=== PATIENT | female | born 1955 | race Caucasian/White ===

== ENCOUNTER 2019-10-13 14:35 | Outpatient (CLI) | payer MEDICARE, OTHER, SELFPAY ==
--- NOTE | 2019-10-13 14:49 | MM_ITS ---
WS: [id number] BILATERAL SCREENING DIGITAL MAMMOGRAM WITH CAD HISTORY: SCREENING COMPARISON: 08/28/2018 Bilateral CC and MLO views submitted. Computer aided detection analyzed. Breast composition: There are scattered areas of fibroglandular density. No suspicious masses, microc alcifications or architectural distortion. Benign calcifications in each breast. MM/[place] [id number] IMPRESSION: BI-RADS: 2-Benign FOLLOW UP: 1 Year Follow-up
== END 2019-10-13 14:36 | disposition home or self-care (01) ==
PROVIDERS: PCP Nurse Practitioner; Visit Provider Nurse Practitioner
DX: Z12.31 Encounter for screening mammogram for malignant neoplasm of breast (principal)
CPT/HCPCS: 77067

== ENCOUNTER 2019-10-28 08:22 | Day surgery (SDC) | payer MEDICARE, OTHER, SELFPAY ==
[2019-10-27 12:14] VITALS: BMI 33.5
[2019-10-28 08:48] VITALS: BP 127/71; PULSE 86; RESP 18; TEMP 36.7; O2SAT 99
[2019-10-28] MEDS: sodium chloride 0.9% 1,000 ML 30 ML IV (08:56)
[2019-10-28 09:03] LABS: Glucose Point of Care 118 mg/dL (70-110)
--- NOTE | 2019-10-28 09:27 | ANES.PREANE2 ---
Pre-Anesthetic Assessment Pre-Anesthetic Assessment: Height/Weight: Height 1.52 m Weight 78.018 kg Temp Pulse Resp BP Pulse Ox 98.0 F 86 18 127/71 99 10/28/19 08:48 10/28/19 08:48 10/28/19 08:48 10/28/19 08:48 10/28/19 08:48 Proposed Procedure: Operation Date: 10/28/19 10:00 Proposed Procedures p Colonoscopy/10526 Z12.11(Not Applicable) - Jeffry Coker MD Last intake: Intake Last Liquid Date 10/27/19 Last Liquid Time 20:00 Last Solid Date 10/26/19 Last Solid Time 18:00 Social: Social History: No alcohol and No tobacco Exam: Pre-Anes Outpt Exam: alert, oriented x 3, clear to auscultation bilaterally and regular rate & rhythm Airway: Submandibular: WNL Cervical ROM: WNL MP: 2 Dentition: Other (teeth ok) History/ROS: No significant history except as noted Pulmonary: Pulmonary: None reported CV/HEM: CV/HEM: HTN : : None reported Hepatic: Hepatic: None reported GI: GI: GERD (controlled) Metabolic: Metabolic: DM and Hyperlipidemia Musc/skel: Musc/skel: None reported Neuropsych: Neuropsych: None reported Anesthetic Plan: ASA status: 2 Anesthesia: Anesthesia Evaluation and MAC Risk of > 500 ml blood loss (7ml/kg in children): No Meds/Allergies Current Medications: Current Medications Generic Name Dose Route Start Last Admin Trade Name Freq PRN Reason Stop Dose Admin Sodium Chloride 1,000 mls @ 30 ml s/hr 10/27/19 13:45 10/28/19 08:56 Sodium Chloride 0.9% IV 10/28/19 13:44 30 mls/hr .Q24H DAMON Administration PFSH Anesthesia PFSH: Medical History Diabetes Hyperlipidemia Hypothyroidism RBBB Surgical History S/P cholecystectomy Family History Other CAD (coronary artery disease) Cancer Diabetes Hypertension Social History Smoking and tobacco status: never smoked Alcohol intake: never Data Anesthesia Other Labs: Laboratory Results - last 48 hr 10/28/19 08:59 POC Glucose 118 Cardiac Studies: No Data to Display
--- NOTE | 2019-10-28 10:20 | P.HP_ITS ---
Same Day Surgery H&P Indication for Procedure/HPI DATE OF PROCEDURE: October 28, 2019 CHIEF COMPLAINT/INDICATIONFOR SURGICAL PROCEDURE: I am here for screening colonoscopy PREOP DIAGNOSIS: Screening colonoscopy PLANNED PROCEDRUE: Operation Date: 10/28/19 10:00 Proposed Procedures p Colonoscopy/07810 Z12.11(Not Applicable) - Jeffry Coker MD This is a pleasant 64 years old female patient presents as a referral for screening colonoscopy, patient never had one before and she denies any bleeding per rectum or nonintentional weight loss or history of colon cancer. She states that she does have hypothyroidism, diabetes and hyperlipidemia and right bundle branch block ROS All systems have been reviewed negative except as per the above or per problem list Medications/Allergies* Home Medications Medication Instructions Recorded Confirmed Type aspirin 81 mg tablet,delayed 81 mg PO DAILY 06/22/19 10/27/19 History release glyburide 2.5 mg-metformin 500 mg 2 tab PO BID tab 06/22/19 10/28/19 History tablet levothyroxine 100 mcg capsule 100 mcg PO DAILY 06/22/19 10/28/19 History lovastatin 10 mg tablet 10 mg PO BEDTIME 06/22/19 10/28/19 History metoprolol tartrate 25 mg tablet 25 mg PO BID 06/22/19 10/28/19 History omeprazole 20 mg capsule,delayed 20 mg PO DAILY 06/22/19 10/28/19 History release trazodone 50 mg tablet 50 mg PO DAILY 06/22/19 10/28/19 History Allergies/Adverse Reactions Allergy/AdvReac Type Severity Reaction Status Date / Time No Known Allergies Allergy Verified 10/28/19 10:21 Current Medications: Generic Name Dose Route Start Last Admin Trade Name Freq PRN Reason Stop Dose Admin Sodium Chloride 1,000 mls @ 30 mls/hr 10/27/19 13:45 10/28/19 08:56 Sodium Chloride 0.9% IV 10/28/19 13:44 30 mls/hr .Q24H DAMON Administration Pertinent History/Comorbid Conditions* Medical History (Updated 06/23/19 @ 06:13 by Elidia Elliott MD) Diabetes Hyperlipidemia Hypothyroidism RBBB Surgical History (Updated 06/22/19 @ 11:24 by Elidia Elliott MD) S/P cholecystectomy Family History (Updated 06/22/19 @ 11:11 by Corrina Rubio RN) Diabetes CAD (coronary artery disease) Cancer Hypertension Social History Smoking and tobacco status: never smoked Alcohol intake: never Pertinent Exam Findings alert, oriented x 3, clear to auscultation bilaterally, regular rate & rhythm and procedure specific exam findings (Abdominal examination nontender nondistended soft no signs of peritonitis) Recommendations Surgery/Procedure today (Screening colonoscopy and informed consent per chart) Coding Level of Care Code Acute Information Assistant for Saleem Linares
[2019-10-28 10:38] VITALS: BP 120/58; PULSE 82; RESP 16; TEMP 36.4; O2SAT 98
--- NOTE | 2019-10-28 10:45 | ANE.PACU2 ---
Inpatient post-anesthesia follow up: Airway intact: Yes Vital signs: Temperature 97.5 F Pulse Rate 82 Respiratory Rate 16 Blood Pressure 120/58 Pulse Oximetry 98 Oxygen Delivery Me thod Nasal Cannula Oxygen Flow Rate 3.0 Fraction of Inspir ed Oxygen Hydration adequate: Yes Nausea and vomiting: No Pain level: 1 Mental status: Baseline
[2019-10-28 10:49] VITALS: BP 125/69; PULSE 77; RESP 18; O2SAT 95
== END 2019-10-28 11:00 | disposition home or self-care (01) ==
PROVIDERS: PCP Nurse Practitioner; Visit Provider Surgery
PROC: 0DJD8ZZ Inspection of Lower Intestinal Tract, Via Natural or Artificial Opening Endoscopic (ICD-10-PCS; CPT 45378; principal; 2019-10-28 10:00)
DX: Z12.11 Encounter for screening for malignant neoplasm of colon (principal); K57.30 Diverticulosis of large intestine without perforation or abscess without bleeding; E03.9 Hypothyroidism, unspecified; E11.9 Type 2 diabetes mellitus without complications; E78.5 Hyperlipidemia, unspecified; Z79.82 Long term (current) use of aspirin; I45.10 Unspecified right bundle-branch block; Z82.49 Family history of ischemic heart disease and other diseases of the circulatory system; Z83.3 Family history of diabetes mellitus; I10 Essential (primary) hypertension
CPT/HCPCS: 12345; 36416; 82962; G0121; J2704; J7030

== ENCOUNTER 2020-06-16 08:38 | Outpatient (CLI) | payer MEDICARE, OTHER, SELFPAY ==
--- NOTE | 2020-06-16 08:48 | CT_ITS ---
WS: [id number] CT RIGHT SHOULDER, NONCONTRAST. HISTORY: PAIN IN RIGHT SHOULDER, history of fall. Technique: All CT scans at [facility] use at least one of these dose optimization techniq ues: automated exposure control; mA and/or kV adjustment per patient size (includes targeted exams wh ere dose is matched to clinical indication); or iterative reconstruction. DLP: 711.95 mGycm COMPARISON: None available. Moderate narrowing of the AC joint with soft tissue and hypertrophic bone changes. No acute fractures identified within the clavicle or shoulder. Humeral head is well seated at the glenoid. Scapula is i ntact and the adjacent ribs. No soft tissue abnormalities. Visualized RIGHT lung is clear. CT/CT shoulder RT wo con* [id number] IMPRESSION: 1. No acute RIGHT shoulder fracture. 2. Moderate RIGHT AC joint arthritis.
--- NOTE | 2020-06-16 08:48 | CT_ITS ---
WS: [id number] CT THORACIC SPINE HISTORY: PAIN IN THORACIC SPINE TECHNIQUE: Contiguous 2.5 mm axial images are reviewed to thoracic spine. Images are reformatted in s agittal and coronal planes. All CT scans at [facility] use at least one of these dose opt imization techniques: automated exposure control; mA and/or kV adjustment per patient size (includes targeted exams where dose is matched to clinical indication); or iterative reconstruction. DLP: 938.59 mGycm COMPARISON: None available. Very mild RIGHT curvature of the midthoracic spine. Vertebral bodies are normally aligned posteriorly . Very mild disc space narrowing and desiccation in the mid thoracic spine. No fractures. Marginal os teophytes are greatest to the RIGHT. T1-2: Normal. T2-3: Normal. T3-4: Normal. T4-5: Normal. T5-6: Normal. T6-7: Normal. T7-8: Normal. T8-9: Mild facet arthritis. No stenosis. T9-10: Mild bilateral facet arthritis without stenosis. T10-11: Mild bilateral facet joint arthritis without stenosis. T11-12: Normal. Appears vertebral soft tissues are negative. CT/CT thoracic spin wo con* [id number] IMPRESSION: 1. Mild thoracic spondylosis. 2. No thoracic spine fracture.
--- NOTE | 2020-06-16 08:48 | CT_ITS ---
WS: [id number] CT CERVICAL SPINE HISTORY: CERVICALGIA TECHNIQUE: Contiguous 2.5 mm axial imaging performed through the entire cervical spine. Sagittal and coronal reformats also performed. All CT scans at [facility] use at least one of these do se optimization techniques: automated exposure control; mA and/or kV adjustment per patient size (inc ludes targeted exams where dose is matched to clinical indication); or iterative reconstruction. DLP: 1604.99 mGycm COMPARISON: None available. Posterior cervical alignment is normal. Less than 2 mm anterolisthesis of C4. Craniocervical junction is normal. Moderate narrowing of the predental space with degenerative osteophytes at the odontoid t ip. Lateral masses of C1 and C2 are aligned. C2-C3: Normal. C3-C4: Mild bilateral facet joint arthritis. There is a very tiny central disc protrusion. Mild narro wing of the RIGHT foramen due to osteophytes and facet arthritis. C4-C5: Mild osteophytic ridging with bilateral facet arthritis, LEFT greater than RIGHT. Very mild LE FT foraminal narrowing. C5-C6: Diffuse annular disc bulging and osteophytic ridging. Very shallow central to RIGHT paracentra l disc protrusion. Mild central and bilateral foraminal stenosis. C6-C7: Mild osteophytic ridging and facet arthritis. No significant stenosis. C7-T1: Normal. Soft tissues are normal. Mild atherosclerosis in the carotid arteries. Lung apices are clear. CT/CT cervical spin wo con* [id number] IMPRESSION: 1. Mild cervical spondylosis. 2. Mild central and bilateral foraminal stenosis at C5-6. 3. Mild RIGHT foraminal stenosis at C3-4, LEFT at C4-5.
== END 2020-06-16 08:39 | disposition home or self-care (01) ==
LOC: RADWPI 08:40
PROVIDERS: PCP Physician Assistant; Visit Provider Physician Assistant
DX: M47.812 Spondylosis without myelopathy or radiculopathy, cervical region (principal); M48.02 Spinal stenosis, cervical region; M13.811 Other specified arthritis, right shoulder; M47.814 Spondylosis without myelopathy or radiculopathy, thoracic region
CPT/HCPCS: 72125; 72128; 73200

== ENCOUNTER 2020-11-22 10:13 | Outpatient (CLI) | payer MEDICARE, OTHER, SELFPAY ==
--- NOTE | 2020-11-22 11:00 | MR_ITS ---
WS: [id number] MRI LUMBAR SPINE NONCONTRAST HISTORY: LBP COMPARISON: None available. TECHNIQUE: Sagittal and axial multisequence imaging is submitted. Mild narrowing of the central cervical canal at C5-6 due to osteophyte and disc disease. Mild scoliosis lumbar spine. Mild disc desiccation throughout the lumbar spine. 2 mm anterolisthesis of L4. No acute marrow edema or fracture. Conus terminates normally at L1-2 disc level. L1-L2: Shallow RIGHT paracentral disc protrusion without stenosis. L2-L3: Very shallow central disc protrusion and mild facet and ligamentum flavum hypertrophy. L3-L4: Diffuse annular disc bulging. Focal RIGHT foraminal disc protrusion and a very shallow central disc protrusion contacts the ventral thecal sac. There is mild disc contact on the RIGHT L3 nerve ro ot. Mild central and RIGHT foraminal stenosis. Small amount of fluid in the facet joints bilaterally. L4-L5: Diffuse annular disc bulging. Asymmetric ligamentum flavum hypertrophy and facet arthritis. Mo st significant on the LEFT. Osteophytes and facet arthritis encroaching into the subarticular recess and foramen and lateral recess of the thecal sac. Moderate to severe central with the LEFT lateral re cess and subarticular foraminal stenosis. Moderate stenosis on the RIGHT. Significant contact on the LEFT L5 nerve root. L5-S1: Moderate narrowing of the central canal predominantly due to facet and ligamentum flavum hyper trophy. RIGHT facet joint osteophytes encroaching into the thecal sac. There is a shallow central dis c protrusion. MR/MR lumbar spine wo con* [id number] IMPRESSION: 1. Moderate to severe central with LEFT lateral recess and subarticular forami nal stenosis at L4-5. Predominantly due to facet joint arthritis with significa nt contact on the LEFT L5 nerve root. 2. Moderate central stenosis at L5-S1 with facet joint osteophytes encroaching into the thecal sac, greatest on the RIGHT. Additional central disc protrusion at L5-S1. 3. Very shallow RIGHT paracentral disc protrusion at L1-2 and central at L2-3 without encroachment upon the nerve roots. 4. Focal RIGHT foraminal disc protrusion and shallow central protrusion with o nly minimal contact on the RIGHT L3 nerve root. 5. Mild central and foraminal stenosis at L3-4.
== END 2020-11-22 10:14 | disposition home or self-care (01) ==
PROVIDERS: PCP Physician Assistant; Visit Provider Physician Assistant Medical
DX: M48.061 Spinal stenosis, lumbar region without neurogenic claudication (principal); M51.26 Other intervertebral disc displacement, lumbar region; M48.07 Spinal stenosis, lumbosacral region
CPT/HCPCS: 72148

== ENCOUNTER 2020-12-15 14:48 | Outpatient (CLI) | payer MEDICARE, OTHER, SELFPAY ==
--- NOTE | 2020-12-15 14:56 | USCV_ITS ---
Melba Santizo Age: 65 Gender: F : 1955 Exam Date: 12/15/2020 15:40 Ordering Phys: Geraldine Vinson Technologist: Melissa Jenkins [place]am Location[place] [facility] [place]ication: LLE PAIN AND SWELLING HISTORY: Lower extremity swelling. Lower extremity pain. PROCEDURES: Venous duplex imaging was performed in only the left lower extremity. The following venous structures were evaluated: common femoral vein, profunda vein, proximal portion of the greater saphenous vein, superficial femoral vein, and the popliteal vein. In addition, the posterior tibial and peroneal trunk were evaluated. Serial compression, augmentation maneuvers, and spectral Doppler flow evaluation were performed. FINDINGS: Normal 2-D Doppler and augmentation and compressibility throughout the lower extremity venous structures. Additional imaging through the proximal calf veins also reveals no thrombus. Limited evaluation of the greater saphenous vein is patent with no thrombus. CONCLUSIONS No DVT left lower extremity. Dr. Marie Walton DO (Electronically Signed) Final Date: 15 December 2020 15:50 S
== END 2020-12-15 14:49 | disposition home or self-care (01) ==
LOC: RAD 14:52
PROVIDERS: PCP Physician Assistant; Visit Provider Physician Assistant
DX: R60.0 Localized edema (principal); M79.605 Pain in left leg; M79.89 Other specified soft tissue disorders
CPT/HCPCS: 93971

== ENCOUNTER 2021-01-11 09:01 | Outpatient (CLI) | payer MEDICARE, OTHER, SELFPAY ==
--- NOTE | 2021-01-11 09:30 | USCV_ITS ---
Melba Santizo Age: 65 Gender: F : 1955 Exam Date: 01/11/2021 09:26 Ordering Phys: Elidia Elliott MD ([email or web address]) Technologist: Melissa Jenkins Exam Location: [facility] – [place] Indication: CHEST PAIN BP: 120 / 80 HR: 62 Rhythm: Sinus Technical Quality: Adequate MEASUREMENTS (Male / Female) Normal Values 2D ECHO LV Diastolic Diameter PLAX 5.4 cm 4.2 - 5.9 / 3.9 - 5.3 cm LV Systolic Diameter PLAX 3.4 cm IVS Diastolic Thickness 0.9 cm 0.6 - 1.0 / 0.6 - 0.9 cm IVS Systolic Thickness 1.6 cm LVPW Diastolic Thickness 1.2 cm 0.6 - 1.0 / 0.6 - 0.9 cm LVPW Systolic Thickness 1.7 cm LVOT Diameter 2.0 cm LV Ejection Fraction 2D Teich 64.9 % LV Ejection Fraction MOD 2C 56.9 % LV Ejection Fraction 2C AL 56.1 % LA Diameter 3.3 cm LA Width 3.0 cm LA Height 3.6 cm RA Width 3.4 cm RA Height 3.8 cm Aorta at Sinotubular Diameter 2.0 cm M-MODE Aortic Annulus Diameter 2.8 cm LA Ao Ratio MM 1.2 MV E Point Septal Separation 0.4 cm DOPPLER AV Peak Velocity 149.0 cm/s LVOT Peak Velocity 77.0 cm/s AV Area Cont Eq vti 1.7 cm squared AV Area Cont Eq pk 1.6 cm squared MV Peak Velocity 95.0 cm/s MV Area PHT 5.0 cm squared Mitral E to A Ratio 1.1 MV E' Velocity 40.0 cm/s Mitral E to MV E' Ratio 8.8 Mitral E to LV E' Lateral Ratio 10.3 Mitral E to LV E' Septal Ratio 7.8 TR Peak Velocity 202.9 cm/s TR Peak Gradient 16.5 mmHg TR Mean Velocity 199.5 cm/s TR Mean Gradient 16.4 mmHg TR Velocity Time Integral 89.8 cm TV Peak E Velocity 63.0 cm/s Right Atrial Pressure 3.0 mmHg Pulmonary Artery Systolic Pressu 19.5 mmHg PV Peak Velocity 100.0 cm/s RV Acceleration Time 0.1 s RV Ejection Time 0.3 s RV AcT/ET 0.3 FINDINGS Left Ventricle Normal left ventricular size, systolic function and wall thickness, with no diagnostic regional wall motion abnormalities. Left ventricular ejection fraction is estimated at 60 %. Normal diastolic function. Right Ventricle Normal right ventricular size and systolic function. Right ventricular systolic pressure 27 mmHg. Right Atrium Normal right atrial size. Left Atrium Normal left atrial size. Mitral Valve Structurally normal mitral valve. No mitral valve stenosis. Mild mitral valve regurgitation. Aortic Valve Structurally normal trileaflet aortic valve. No aortic valve stenosis. No aortic valve regurgitation. Tricuspid Valve Structurally normal tricuspid valve. Trace to mild tricuspid valve regurgitation. Pulmonic Valve Pulmonic valve not well visualized. Pericardium No pericardial effusion. Aorta Normal sized aortic root. Normal sized inferior cava. CONCLUSIONS 1. Normal left ventricular size, systolic function and wall thickness, with no diagnostic regional wall motion abnormalities. Left ventricular ejection fraction is estimated at 60 %. Normal diastolic function. 2. Mild mitral valve regurgitation. 3. Pulmonary artery pressure estimated at 27 mm Hg. 4. No prior similar studies to compare. Elidia Elliott MD (Electronically Signed) Final Date: 13 January 2021 21:56 S
== END 2021-01-11 09:02 | disposition home or self-care (01) ==
LOC: US 09:05
PROVIDERS: PCP Physician Assistant; Visit Provider Internal Medicine Cardiovascular Disease
DX: R00.2 Palpitations (principal); R07.9 Chest pain, unspecified; I34.0 Nonrheumatic mitral (valve) insufficiency
CPT/HCPCS: 93306

== ENCOUNTER 2021-06-22 20:00 | Outpatient (CLI) | payer MEDICARE, OTHER, SELFPAY | END 2021-06-22 20:01 | disposition home or self-care (01) | LOC: SLEEP 06-23 08:54 | PROVIDERS: PCP Physician Assistant; Visit Provider Physician Assistant | DX: G47.33 Obstructive sleep apnea (adult) (pediatric) (principal) | CPT/HCPCS: 95810 ==

== ENCOUNTER 2021-08-10 20:00 | Outpatient (CLI) | payer MEDICARE, OTHER, SELFPAY | END 2021-08-10 20:01 | disposition home or self-care (01) | LOC: SLEEP 08-11 06:17 | PROVIDERS: PCP Physician Assistant; Visit Provider Physician Assistant | DX: G47.33 Obstructive sleep apnea (adult) (pediatric) (principal) | CPT/HCPCS: 95811 ==

== ENCOUNTER 2021-09-20 13:25 | Outpatient (CLI) | payer MEDICARE, OTHER, SELFPAY ==
--- NOTE | 2021-09-20 13:40 | MM_ITS ---
WS: [id number] BILATERAL 3D TOMOSYNTHESIS DIGITAL SCREENING MAMMOGRAPHY WITH CAD CLINICAL INFORMATION: SCREENING HISTORY: Screening mammogram. No current complaints. COMPARISON: October 13, 2019 TECHNIQUE: Bilateral CC and MLO views. FINDINGS: Scattered fibroglandular densities bilaterally. Incidental punctate calcifications. Stable clustered calcifications. No suspicious focal mass, asymmetry, calcifications, or architectural distortion. No evidence of malignancy. MM/[place] [id number] IMPRESSION: BI-RADS: 2-Benign FOLLOW UP: 1 Year Follow-up Recommend return to annual screening mammography.
== END 2021-09-20 13:26 | disposition home or self-care (01) ==
LOC: RAD 13:27
PROVIDERS: PCP Physician Assistant; Visit Provider Physician Assistant
DX: Z12.31 Encounter for screening mammogram for malignant neoplasm of breast (principal)
CPT/HCPCS: 77063; 77067

== ENCOUNTER → 2021-12-05 10:31 | Outpatient (BNVA) | payer MEDICARE, OTHER, SELFPAY | PROVIDERS: PCP Physician Assistant; Visit Provider Internal Medicine Cardiovascular Disease | DX: I10 Essential (primary) hypertension (principal); I45.10 Unspecified right bundle-branch block; E78.49 Other hyperlipidemia | CPT/HCPCS: 99214 ==

== ENCOUNTER 2022-01-30 12:30 | Outpatient (CLI) | payer MEDICARE, OTHER, SELFPAY ==
--- NOTE | 2022-01-30 12:41 | XR_ITS ---
WS: [id number] SCREENING DEXA SCAN [email or web address] CLINICAL INFORMATION: DISORDER OF BONE DESITY COMPARISON: None. FINDINGS: The L1-L4 bone mineral density measures 1.263 g/cm2. This corresponds to a T score score of 0.7 and Z score of 1.7. Left femoral neck bone mineral density measures 1.180 g/cm2. This corresponds to a T score of 1.4 and Z score of 2.2. Right femoral neck bone mineral density measures 1.149 g/cm2. This corresponds to a T score 1.1of and Z score of 2.0. Mean femoral neck bone mineral density measures 1.165 g/cm2. This corresponds to a T score of 1.2 and Z score of 2.1. XR/XR DEXA axial skeleton* [id number] IMPRESSION: Normal bone mineralization. Patient's FRAX calculated 10 year probability for major osteoporotic fracture i s 5.9 % and osteoporotic hip fracture is 0.2%.
== END 2022-01-30 12:31 | disposition home or self-care (01) ==
LOC: RAD 12:31
PROVIDERS: PCP Physician Assistant; Visit Provider Physician Assistant
DX: Z78.0 Asymptomatic menopausal state (principal)
CPT/HCPCS: 77080

== ENCOUNTER 2022-02-19 09:27 | Outpatient (CLI) | payer MEDICARE, OTHER, SELFPAY ==
--- NOTE | 2022-02-19 09:30 | USCV_ITS ---
Melba Santizo Age: 66 Gender: F : 1955 Exam Date: 02/19/2022 10:20 Ordering Phys: Geraldine Vinson Technologist: Monika Madsen Exam Location: [facility] – [place] Indication: Edema BP: 118 / 68 HR: 67 Rhythm: Sinus Technical Quality: Adequate MEASUREMENTS (Male / Female) Normal Values 2D ECHO LV Diastolic Diameter PLAX 4.8 cm 4.2 - 5.9 / 3.9 - 5.3 cm LV Systolic Diameter PLAX 3.8 cm IVS Diastolic Thickness 1.3 cm 0.6 - 1.0 / 0.6 - 0.9 cm IVS Systolic Thickness 1.8 cm LVPW Diastolic Thickness 1.3 cm 0.6 - 1.0 / 0.6 - 0.9 cm LVPW Systolic Thickness 1.5 cm LVOT Diameter 2.1 cm LV Ejection Fraction 2D Teich 43.2 % LV Ejection Fraction MOD 2C 73.2 % LV Ejection Fraction 2C AL 73.6 % LA Diameter 3.3 cm LA Width 2.8 cm LA Height 5.4 cm RA Width 3.4 cm RA Height 5.1 cm Aorta at Sinotubular Diameter 2.5 cm IVC Diameter 1.8 cm M-MODE MV E Point Septal Separation 0.3 cm DOPPLER AV Peak Velocity 144.0 cm/s LVOT Peak Velocity 91.0 cm/s AV Area Cont Eq vti 2.3 cm squared AV Area Cont Eq pk 2.3 cm squared MV Peak Velocity 93.0 cm/s MV Area PHT 3.7 cm squared Mitral E to A Ratio 1.3 MV E' Velocity 48.5 cm/s Mitral E to MV E' Ratio 9.5 Mitral E to LV E' Lateral Ratio 9.9 Mitral E to LV E' Septal Ratio 9.1 TR Peak Velocity 176.3 cm/s TR Peak Gradient 12.4 mmHg Right Atrial Pressure 3.0 mmHg Pulmonary Artery Systolic Pressu 15.4 mmHg PV Peak Velocity 95.0 cm/s RV Acceleration Time 0.1 s RV Ejection Time 0.3 s RV AcT/ET 0.4 FINDINGS Left Ventricle Normal left ventricular size, systolic function and wall thickness, with no regional wall motion abnormalities. Left ventricular ejection fraction is estimated at 60%. Normal diastolic function. Right Ventricle Normal right ventricular size and systolic function. Right ventricular systolic pressure 20 mmHg. Right Atrium Normal right atrial size. Right atrial pressure estimated at 3 mmHg. Left Atrium Normal left atrial size. Mitral Valve Structurally normal mitral valve. No mitral valve stenosis. Trace mitral valve regurgitation. Aortic Valve Aortic valve not well visualized. Probably trileaflet aortic valve. No aortic valve stenosis. No aortic valve regurgitation. Tricuspid Valve Structurally normal tricuspid valve. No tricuspid valve stenosis. Trace tricuspid valve regurgitation. Pulmonic Valve Structurally normal pulmonic valve. No pulmonary valve stenosis. No pulmonary valve regurgitation. Pericardium No pericardial effusion. Aorta Normal size aortic root and proximal ascending aorta. IVC Normal IVC dimension with >50% respiratory change of the inferior vena cava. CONCLUSIONS 1. Normal left ventricular size, systolic function and wall thickness, with no regional wall motion abnormalities. Left ventricular ejection fraction is estimated at 60%. Normal diastolic function. 2. Normal right ventricular size and systolic function. 3. No significant change when compared to study dated 01/11/2021. Elidia Elliott MD (Electronically Signed) Final Date: 20 February 2022 15:17 S
== END 2022-02-19 09:28 | disposition home or self-care (01) ==
LOC: RAD 09:28
PROVIDERS: PCP Physician Assistant; Visit Provider Physician Assistant
DX: R60.0 Localized edema (principal)
CPT/HCPCS: 93306

== ENCOUNTER 2022-06-06 07:53 | Outpatient (CLI) | payer MEDICARE, OTHER, SELFPAY | END 2022-06-06 07:54 | disposition home or self-care (01) | LOC: RT 07:53 | PROVIDERS: PCP Physician Assistant; Visit Provider Physician Assistant | DX: R05.3 Chronic cough (principal); R06.02 Shortness of breath | CPT/HCPCS: 94060; 94726; 94729; J7613 ==

== ENCOUNTER 2022-11-24 14:19 | Emergency (ER) | payer MEDICARE, OTHER, SELFPAY ==
[2022-11-24 14:32] VITALS: BP 142/59; PULSE 68; RESP 14; TEMP 36.7; O2SAT 98; BMI 39.0
--- NOTE | 2022-11-24 15:34 | ED_ITS ---
HPI - Extremity Problem General: Chief complaint: Extremity Injury, Lower Stated complaint: LT leg pain Time Seen by Provider: 11/24/22 15:35 History of Present Illness: 67-year-old female presents emergency department complaints of left lower leg swelling and pain. She states she has been seen by an orthopedic physician and 1 week ago received an MRI at outpatient MRI in [facility]. She states that she is unaware of the findings of that MRI. She states she has had continued increased pain for the past 3 days. She states she feels like her knee is giving out on her and is using her cane for assistance. She states her current pain is a 8 out of 10 aching and throbbing and she states that her left lower leg feels tight. Review of Systems General: Reports: 10 or more systems reviewed and unremarkable except in HPI and below Musc: Reports: extremity pain, extremity swelling, joint pain and joint stiffness [facility] ED PFSH: Medical History Diabetes Hyperlipidemia Hypothyroidism RBBB Surgical History S/P cholecystectomy Family History Other CAD (coronary artery disease) Cancer Diabetes Hypertension Social History Smoking and tobacco status: never smoked Alcohol intake: never Substance/Drug Use: never Physical Exam Const: COMMON NORMALS: no acute distress, average body habitus, patient orie nted x3, no limitations, healthy appearing, alert and well nourished HENMT: COMMON NORMALS: normocephalic and external ears normal HEAD & SCALP: normocephalic EXTERNAL EAR: Yes external ears normal Eye: COMMON NORMALS: Equal, round and reactive pupils present, EOMs intact bilaterally and normal visual avendano by confrontation PUPIL: Yes Equal, round and reactive pupils present Neck/C-Spine: COMMON NORMALS: full ROM and supple Resp: COMMON NORMALS: clear to auscultation bilaterally AUSCULTATION: clear to auscultation bilaterally Cardio: COMMON NORMALS: regular rate, regular rhythm, S1 normal heart sound present, S2 normal heart sound present and Peripheral pulses 2+ throughout RATE: regular rate RHYTHM: regular rhythm HEART SOUNDS: S1 normal heart sound present and S2 normal heart sound present PERIPHERAL PULSES: Peripheral pulses 2+ throughout GI: COMMON NORMALS: Normal to inspection, nondistended, normoactive bowel sounds present, Soft to palpation and non-tender PALPATION: Yes Soft to palpation Extremity: LEFT LOWER EXTREMITY: Yes lower leg (1+ lower extremity edema, minimal blottable effusion to the left knee) Neuro: COMMON NORMALS: patient oriented x3, moves all extremities, no focal motor deficits, no sensory deficits noted and deep tendon reflexes 2+ bilaterally SENSORIUM/ORIENTATION: Yes alert Course Vital Signs: Vital signs: Vital Signs Temperature 98.0 F 11/24/22 14:32 Pulse Rate 70 11/24/22 16:02 Respiratory Rate 16 11/24/22 16:02 Blood Pressure 155/70 11/24/22 16:02 Pulse Oximetry 97 11/24/22 16:02 Oxygen Delivery Me thod Room Air 11/24/22 16:02 MDM - Extremity (Nontraumatic) Medical Decision Making Physical exam completed and documented, I will obtain an ultrasound of the left lower extremity to rule out DVT if that is negative course we will provide her a knee immobilizer and have her continue to follow-up with the orthopedic physician that she is previously established with. She states she has not taken anything for her discomfort I did offer her Tylenol and at present she has d eclined. After the application of the knee immobilizer the patient was reevaluated she was neurovascular intact before and after the application of the knee immobilizer capillary refill in her lower extremities were less than 3 seconds bilaterally. Medical Records I reviewed the patient's medical records. Lab Data Radiology Impressions Venous Duplex 11/24/22 15:46 IMPRESSION: No sonographic evidence of deep vein thrombosis. Discharge Plan Discharge Patient Disposition: Home Clinical Impression: Acute pain of left knee, Edema of left lower extremity Condition: Stable Prescriptions: New tramadol 50 mg tablet 25 mg PO Q12H PRN (Reason: pain) Qty: 14 0RF No Action aspirin [Adult Low Dose Aspirin] 81 mg tablet,delayed release (DR/EC) 81 mg PO QAM omeprazole 20 mg capsule,delayed release(DR/EC) 20 mg PO QAM metoprolol tartrate 25 mg tablet 25 mg PO BID nitroglycerin 0.4 mg tablet, sublingual 0.4 mg SUBLINGUAL Q5M PRN (Reason: chest pain) Qty: 25 3RF Rx Instructions: do not exceed 3 doses per episode citalopram 10 mg tablet 10 mg PO QAM sumatriptan succinate 50 mg tablet 50 mg PO Q2H PRN (Reason: Migraine Headache) Rx Instructions: do not exceed 4 doses per 24 hrs budesonide-formoterol [Symbicort] 160-4.5 mcg/actuation HFA aerosol inhaler 2 puff inhalation Q12H PRN (Reason: unknown) albuterol sulfate [ProAir HFA] 90 mcg/actuation HFA aerosol inhaler 2 puff inhalation Q6H PRN (Reason: Shortness Of Breath) albuterol sulfate 2.5 mg /3 mL (0.083 %) solution for nebulization 2.5 mg inhalation Q6H PRN (Reason: Shortness Of Breath) metformin 500 mg tablet 500 mg PO QAM lovastatin 40 mg tablet 40 mg PO QPM pioglitazone 45 mg tablet 45 mg PO QAM glimepiride 2 mg tablet 2 mg PO QAM Unithroid 100 mcg tablet 100 mcg PO QAM trazodone 100 mg tablet 100 mg PO BEDTIME loratadine 10 mg tablet 10 mg PO QAM Januvia 50 mg tablet 50 mg PO QAM Discharge Orders: Discharge ED (Routine); Ordered 11/24/22 Ordered By: Ludwin Gonzalez Referrals: Geraldine Vinson PA-C [Primary Care Provider] - Patient Instructions: Opioid Safety, Pain Management Coding Level of Care Code ED Administrative Aide for Saleem Linares
--- NOTE | 2022-11-24 15:46 | USR_ITS ---
PROCEDURE INFORMATION: Exam: US Duplex Left Lower Extremity Veins, Limited Exam date and time: 11/24/2022 4:12 PM Age: 67 years old Clinical indication: Pain; Leg, lower; Right; Additional info: Pain and swelling to left leg TECHNIQUE: Imaging protocol: Real-time duplex ultrasound of the left extremity with 2-D macdonald scale, color Doppler flow and spectral waveform analysis including responses to compression and other maneuvers (when performed) with image documentation. Limited exam focused on the left lower extremity veins. COMPARISON: No relevant prior studies available. FINDINGS: Left deep veins: Unremarkable. The common femoral, femoral, proximal profunda femoral, popliteal, posterior tibial and peroneal veins are patent without thrombus. Normal compressibility, augmentation response and Doppler waveforms. Superficial veins: Unremarkable. Saphenofemoral junction is patent without thrombus. Soft tissues: Unremarkable. US/CV venous duplex [facility] [id number] IMPRESSION: No sonographic evidence of deep vein thrombosis.
[2022-11-24 16:02] VITALS: BP 155/70; PULSE 70; RESP 16; O2SAT 97
== END 2022-11-24 18:18 | disposition home or self-care (01) ==
PROVIDERS: Emergency Provider Internal Medicine; PCP Physician Assistant
DX: M25.562 Pain in left knee (principal); R60.0 Localized edema; Z79.82 Long term (current) use of aspirin; Z79.84 Long term (current) use of oral hypoglycemic drugs; E11.9 Type 2 diabetes mellitus without complications; E78.5 Hyperlipidemia, unspecified
CPT/HCPCS: 29530; 93971; 99284

== ENCOUNTER → 2022-12-04 10:09 | Outpatient (BNVA) | payer MEDICARE, OTHER, SELFPAY | PROVIDERS: PCP Physician Assistant; Visit Provider Internal Medicine Cardiovascular Disease | DX: R07.9 Chest pain, unspecified (principal); I10 Essential (primary) hypertension; I45.10 Unspecified right bundle-branch block; E78.49 Other hyperlipidemia; E11.9 Type 2 diabetes mellitus without complications; E03.9 Hypothyroidism, unspecified; Z79.84 Long term (current) use of oral hypoglycemic drugs | CPT/HCPCS: 99214 ==

== ENCOUNTER 2022-12-05 14:41 | Oncology outpatient (recurring) (ONCR) | payer MEDICARE, OTHER, SELFPAY ==
[2022-12-05 17:06] LABS: Basophils % 0.2 %; Eosinophils # 0.1 10^3/uL (0.0-0.8); Eosinophils % 1.4 %; Hematocrit 31.8 % (37.0-47.0); Hemoglobin 9.9 g/dL (11.5-15.3); Lymphocytes # 1.8 10^3/uL (0.8-4.8); Lymphocytes % 31.1 %; Mean Corpuscular HGB Conc 31.1 g/dL (30.0-36.0); Mean Corpuscular Hemoglobin 30.2 pg (28.0-34.0); Mean Platelet Volume 9.9 fL (7.4-10.4); Monocytes # 0.4 10^3/uL (0.2-0.9); Monocytes % 6.4 %; Neutrophils % 60.4 %; Nucleated Red Blood Cells % 0 %; Platelet Count 215 10^3/cmm (130-400); Red Blood Count 3.28 10^6/uL (4.1-5.3); Red Cell Distribution Width 13.5 % (12.1-15.1); White Blood Count 5.6 10^3/uL (4.0-10.0)
[2022-12-05 17:18] LABS: Alanine Aminotransferase 10 U/L (0-33); Albumin Level 3.9 g/dL (3.5-5.2); Alkaline Phosphatase 66 U/L (35-105); Anion Gap 12.4 (5-19); Aspartate Amino Transferase 19 U/L (0-32); Blood Urea Nitrogen 17 mg/dL (8-23); Calcium 9.1 mg/dL (8.5-10.5); Carbon Dioxide 31 mmol/L (22-29); Chloride 103 mmol/L (98-107); Ferritin 28 ng/mL (15-150); Globulin 2.8 g/dL (1.3-4.6); Glomerular Filtration Rate 44.7 mL/min (90-130); Glucose 111 mg/dL (65-115); Iron 97 ug/dL (37-145); Osmolality Calculated 296 mOsm/kg (285-295); Percent Saturation 23.7 % (20-50); Potassium 4.4 mmol/L (3.5-5.1); Sodium 142 mmol/L (136-145); Total Bilirubin 0.5 mg/dL (0.15-1.2); Total Iron Binding Capacity 408 mcg/dl; Total Protein 6.7 g/dL (6.6-8.7); Unsaturated Iron Binding 311 ug/dL (112-347)
[2022-12-05 17:33] LABS: Vitamin B12 302 pg/mL (232-1245)
[2022-12-05 18:03] LABS: Folate Level 9.8 ng/mL (4.8-37.3)
[2022-12-07 11:35] LABS: Creatinine, Random Urine 38 mg/dL (20-275); Protein, Total, Random 4 mg/dL (5-24); Protein/Creatinine Ratio 0.105 (0.024-0.184); Protein/Creatinine Ratio 105 mg/g creat (24-184)
[2022-12-08 05:49] LABS: PROTEIN, TOTAL 6.5 g/dL (6.1-8.1)
[2022-12-10 11:40] LABS: KAPPA LIGHT CHAIN, FREE, SERUM 24.4 mg/L (3.3-19.4); KAPPA/LAMBDA LIGHT CHAINS FREE 1.69 (0.26-1.65); LAMBDA LIGHT CHAIN, FREE, SERU 14.4 mg/L (5.7-26.3)
[2022-12-10 15:04] LABS: ALBUMIN 3.9 g/dL (3.8-4.8); ALPHA 1 GLOBULIN 0.3 g/dL (0.2-0.3); ALPHA 2 GLOBULIN 0.7 g/dL (0.5-0.9); BETA 1 GLOBULIN 0.6 g/dL (0.4-0.6); BETA 2 GLOBULIN 0.3 g/dL (0.2-0.5); GAMMA GLOBULIN 0.8 g/dL (0.8-1.7)
[2022-12-11 15:09] LABS: Albumin,Urine Random 0 %; Alpha-1-Globulins Urine Random 0 %; Alpha-2-Globulins Urine Random 0 %; Beta-Globulin,Urine Random 0 %; Gamma Globulin,Urine Random 0 %
== END 2022-12-20 23:59 | disposition home or self-care (01) ==
PROVIDERS: PCP Physician Assistant; Visit Provider Internal Medicine Medical Oncology
DX: D50.9 Iron deficiency anemia, unspecified (principal); E11.22 Type 2 diabetes mellitus with diabetic chronic kidney disease; N18.9 Chronic kidney disease, unspecified; D63.1 Anemia in chronic kidney disease; Z79.84 Long term (current) use of oral hypoglycemic drugs
CPT/HCPCS: 36415; 80053; 82570; 82607; 82728; 82746; 83540; 83550; 83883; 84155; 84156; 84165; 84166; 85025; 86334; 86335; 86880; 99205

== ENCOUNTER 2022-12-31 14:37 | Outpatient (CLI) | payer MEDICARE, OTHER, SELFPAY ==
[2022-12-31 16:42] LABS: Urine Total Protein 4.1 mg/dL (0-150)
[2022-12-31 17:13] LABS: Total Volume, Urine 1600 mL; Urine Total Protein 24 Hour 65.6 mg/24hr (0-150)
[2023-01-03 21:40] LABS: Kappa Free Light Chains Urine 12.83 mg/L (<=32.90)
== END 2022-12-31 14:38 | disposition home or self-care (01) ==
PROVIDERS: PCP Physician Assistant; Visit Provider Internal Medicine Medical Oncology
DX: D64.9 Anemia, unspecified (principal)
CPT/HCPCS: 83883; 84156; 86335

== ENCOUNTER 2023-01-02 10:07 | Outpatient (CLI) | payer MEDICARE, OTHER, SELFPAY | END 2023-01-02 10:08 | disposition home or self-care (01) | PROVIDERS: PCP Physician Assistant; Visit Provider Internal Medicine Medical Oncology | DX: D64.9 Anemia, unspecified (principal) | CPT/HCPCS: 82274 ==

== ENCOUNTER 2023-01-17 12:30 | Oncology outpatient (recurring) (ONCR) | payer MEDICARE, OTHER, SELFPAY ==
[2022-12-25 14:10] LABS: Basophils % 0.5 %; Eosinophils # 0.2 10^3/uL (0.0-0.8); Eosinophils % 3.3 %; Hematocrit 31.5 % (36-47); Lymphocytes # 2.1 10^3/uL (0.8-4.8); Lymphocytes % 34.8 %; Mean Corpuscular HGB Conc 30.8 g/dL (30-55); Mean Corpuscular Hemoglobin 30.2 pg (27-33); Mean Corpuscular Volume 98.1 fl (85-98); Mean Platelet Volume 9.5 fL (7.4-10.4); Monocytes # 0.4 10^3/uL (0.2-0.9); Monocytes % 6.1 %; Neutrophils # 3.32 10^3/uL (1.8-7.7); Nucleated Red Blood Cells % 0 %; Platelet Count 192 10^3/cmm (157-399); Red Blood Count 3.21 10^6/uL (3.85-5.65); Red Cell Distribution Width 13.5 % (12.1-15.1); White Blood Count 6.04 10^3/uL (3.29-11.43)
[2023-01-20 06:40] LABS: Hemoglobin 9.8 g/dL (11.7-15.5); Hemoglobinopathy MCH 30.1 pg (27.0-33.0); Hemoglobinopathy MCV 95.1 fL (80.0-100.0); Red Blood Cell Count 3.26 Million/uL (3.80-5.10)
== END 2023-01-19 23:59 | disposition home or self-care (01) ==
PROVIDERS: PCP Physician Assistant; Visit Provider Internal Medicine Medical Oncology
DX: D50.9 Iron deficiency anemia, unspecified (principal); Z90.49 Acquired absence of other specified parts of digestive tract
CPT/HCPCS: 36415; 83020; 85014; 85018; 85025; 85041; 99204; 99214

== ENCOUNTER 2023-03-07 14:54 | Oncology outpatient (recurring) (ONCR) | payer MEDICARE, OTHER, SELFPAY ==
[2023-03-07 16:36] LABS: Add Urine Microscopic? NO; Charge for UA Resulting for Rev
[2023-03-07 16:38] LABS: Basophils % 0.4 %; Eosinophils # 0.1 10^3/uL (0.0-0.8); Eosinophils % 2.3 %; Hematocrit 33.2 % (36-47); Lymphocytes # 1.7 10^3/uL (0.8-4.8); Lymphocytes % 31.4 %; Mean Corpuscular HGB Conc 31.6 g/dL (30-55); Mean Corpuscular Hemoglobin 31.1 pg (27-33); Mean Corpuscular Volume 98.2 fl (85-98); Mean Platelet Volume 9.9 fL (7.4-10.4); Monocytes # 0.3 10^3/uL (0.2-0.9); Monocytes % 6.1 %; Neutrophils # 3.12 10^3/uL (1.8-7.7); Neutrophils % 59.4 %; Nucleated Red Blood Cells % 0 %; Platelet Count 172 10^3/cmm (157-399); Red Blood Count 3.38 10^6/uL (3.85-5.65); Red Cell Distribution Width 13.6 % (12.1-15.1); White Blood Count 5.25 10^3/uL (3.29-11.43)
[2023-03-07 16:56] LABS: Alanine Aminotransferase 9 U/L (0-33); Alkaline Phosphatase 61 U/L (35-105); Anion Gap 10.3 (5-19); Aspartate Amino Transferase 20 U/L (0-32); Blood Urea Nitrogen 21 mg/dL (8-23); Calcium 8.9 mg/dL (8.5-10.5); Carbon Dioxide 30 mmol/L (22-29); Chloride 107 mmol/L (98-107); Ferritin 22 ng/mL (15-150); Globulin 2.7 g/dL (1.3-4.6); Glomerular Filtration Rate 37.4 mL/min (90-130); Glucose 81 mg/dL (65-115); Iron 60 ug/dL (37-145); Osmolality Calculated 298 mOsm/kg (285-295); Percent Saturation 16.1 % (20-50); Potassium 4.3 mmol/L (3.5-5.1); Sodium 143 mmol/L (136-145); Total Bilirubin 0.5 mg/dL (0.15-1.2); Total Iron Binding Capacity 371 mcg/dl; Total Protein 6.7 g/dL (6.6-8.7); Unsaturated Iron Binding 311 ug/dL (112-347)
[2023-03-07 17:27] LABS: Bilirubin Urine Neg (Negative); Blood Urine Neg (Negative); Glucose Urine UA Norm (Normal); Ketones Urine Negative (Negative); Leukocyte Esterase Urine Negative (Negative); Nitrate Urine Negative (Negative); Protein Urine Neg (Negative); Specific Gravity, Urine 1.015 (1.005-1.030); Urine Appearance Clear (CLEAR); Urine Color Light yellow (Yellow); Urobilinogen Urine Norm (Negative); pH Urine 5 (5-7)
== END 2023-03-21 23:59 | disposition home or self-care (01) ==
PROVIDERS: Nurse Practitioner Family; PCP Physician Assistant; Visit Provider Internal Medicine Medical Oncology
DX: D50.9 Iron deficiency anemia, unspecified (principal); R82.998 Other abnormal findings in urine; Z79.899 Other long term (current) drug therapy
CPT/HCPCS: 36415; 80053; 81003; 82728; 83540; 83550; 85025; 99213

== ENCOUNTER 2023-04-17 07:54 | Outpatient (CLI) | payer MEDICARE, OTHER, SELFPAY ==
--- NOTE | 2023-04-17 07:59 | MM_ITS ---
WS: [id number] BILATERAL 3D TOMOSYNTHESIS DIGITAL SCREENING MAMMOGRAPHY WITH CAD CLINICAL INFORMATION: SCREEN HISTORY: Screening mammogram. No current complaints. COMPARISON: 2021 TECHNIQUE: Bilateral CC and MLO views. FINDINGS: Scattered fibroglandular densities bilaterally. No suspicious focal mass, asymmetry, calcifications, or architectural distortion. No evidence of malignancy. Incidental punctate calcifications. IMPRESSION: MM/[place] [id number] BI-RADS: 2-Benign FOLLOW UP: 1 Year Follow-up Recommend return to annual screening mammography.
== END 2023-04-17 07:55 | disposition home or self-care (01) ==
LOC: RAD 07:54
PROVIDERS: PCP Physician Assistant; Visit Provider Physician Assistant
DX: Z12.31 Encounter for screening mammogram for malignant neoplasm of breast (principal)
CPT/HCPCS: 77063; 77067

== ENCOUNTER 2023-04-18 09:30 | Day surgery (SDC) | payer MEDICARE, OTHER, SELFPAY ==
--- NOTE | 2023-04-18 06:33 | W.PM.OPSFHP ---
Same Day Surgery H&P Indication for Procedure/HPI DATE OF PROCEDURE: April 18, 2023 CHIEF COMPLAINT/INDICATIONFOR SURGICAL PROCEDURE: Iron deficiency anemia PREOP DIAGNOSIS: Iron deficiency anemia PLANNED PROCEDURE: Operation Date: 04/18/23 10:40 Proposed Procedures p 48724 colon 79139 egd G0121 screen colon A risk D50.9(Not Applicable) - Kal Ye MD s Colonoscopy(Not Applicable) - Kal Ye MD Medications/Allergies* Home Medications Medication Instructions Recorded Confirmed Type aspirin 81 mg tablet,delayed 81 mg PO QAM 06/22/19 04/17/23 History release (Adult Low Dose Aspirin) metoprolol tartrate 25 mg tablet 25 mg PO BID 06/22/19 04/17/23 History sumatriptan succinate 50 mg tablet 50 mg PO Q2H PRN Migraine Headache 06/13/20 04/17/23 History albuterol sulfate 2.5 mg/3 mL 2.5 mg inhalation Q6H PRN 03/06/21 04/17/23 History (0.083 %) solution for nebulization Shortness Of Breath albuterol sulfate 90 mcg/actuation 2 puff inhalation Q6H PRN 03/06/21 04/17/23 History aerosol inhaler (ProAir HFA) Shortness Of Breath budesonide-formoterol HFA 160 2 puff inhalation Q12H PRN unknown 03/06/21 04/17/23 History mcg-4.5 mcg/actuation aerosol inhaler (Symbicort) levothyroxine 100 mcg tablet 100 mcg PO QAM 11/24/22 04/17/23 History (Unithroid) loratadine 10 mg tablet 10 mg PO QAM 11/24/22 04/17/23 History pioglitazone 45 mg tablet 45 mg PO QAM 11/24/22 04/17/23 History trazodone 100 mg tablet 100 mg PO BEDTIME 11/24/22 04/17/23 History CPAP (Standard Cpap) 12/05/22 04/17/23 History citalopram 10 mg tablet 10 mg PO DAILY 01/17/23 04/17/23 History rosuvastatin 10 mg tablet 10 mg PO DAILY 01/17/23 04/17/23 History liraglutide 0.6 mg/0.1 mL (18 mg/3 1.2 mg SUBCUT DIRECTED 04/17/23 04/17/23 History mL) subcutaneous pen injector (Victoza 3-[place]) Allergies/Adverse Reactions Allergy/AdvReac Type Severity Reaction Status Date / Time No Known Allergies Allergy Verified 03/07/23 15:15 Pertinent History/Comorbid Conditions* Medical History (Updated 03/07/23 @ 15:34 by Corrine Benitez APRN) RBBB Hypothyroidism Diabetes Hyperlipidemia Surgical History (Updated 06/22/19 @ 11:24 by Elidia Elliott MD) S/P cholecystectomy Family History (Updated 06/22/19 @ 11:11 by Corrina Rubio RN) Diabetes CAD (coronary artery disease) Cancer Hypertension Social History Smoking and tobacco/nicotine status: never used tobacco/nicotine Alcohol intake: never Substance/Drug Use: never Pertinent Exam Findings alert, oriented x 3, clear to auscultation bilaterally and regular rate & rhythm Recommendations Surgery/Procedure today Coding Level of Care Code Acute Code for Chg Fwd
[2023-04-18 09:42] VITALS: BP 165/85; PULSE 89; RESP 18; TEMP 36.3; O2SAT 97; BMI 6017.7
[2023-04-18] MEDS: sodium chloride 0.9% 1,000 ML 30 ML IV (09:46)
[2023-04-18 09:53] LABS: Glucose Point of Care 96 mg/dL (70-110)
--- NOTE | 2023-04-18 10:02 | ANES.PREANE2 ---
Pre-Anesthetic Assessment Height/Weight: Height 12.7 cm Weight 97.069 kg Temp Pulse Resp BP Pulse Ox O2 Del Method 97.3 F L 89 18 165/85 97 Room Air 04/18/23 09:42 04/18/23 09:42 04/18/23 09:42 04/18/23 09:42 04/18/23 09:42 04/18/23 09:42 Preop Diagnosis: Iron deficiency anemia Operation Date: 04/18/23 10:40 Proposed Procedures p 00558 colon 44719 egd G0121 screen colon A risk D50.9(Not Applicable) - Kal Ye MD s Colonoscopy(Not Applicable) - Kal Ye MD Was Beta Olegario taken within 24 hours: Yes Was Clonidine taken within 24 hours: N/A Last intake: Intake Last Liquid Date 04/17/23 Last Liquid Time 22:00 Last Solid Date 04/17/23 Last Solid Time 09:00 Social No alcohol and No tobacco Exam alert, oriented x 3, clear to auscultation bilaterally and regular rate & rhythm Airway Submandibular: within normal limits Cervical ROM: within normal limits Mallampati: Class I Dentition: chipped Comments: Comments: missing many History/ROS No significant history except as noted and No significant complaints Pulmonary Sleep Apnea CV/HEM Hypertension None reported Hepatic None reported GI Gastroesophageal Reflux Disease Metabolic Diabetes Mellitus, Morbid Obesity and Thyroid Disease [facility] None reported Neuropsych None reported Anesthetic Plan ASA status: 3 Anesthesia: Anesthesia Evaluation and MAC Medications/Allergies Home Medications Medication Instructions Recorded Confirmed Last Taken Type aspirin 81 mg tablet,delayed 81 mg PO QAM 06/22/19 04/17/23 04/17/23 History release (Adult Low Dose Aspirin) metoprolol tartrate 25 mg tablet 25 mg PO BID 06/22/19 04/17/23 04/17/23 History nitroglycerin 0.4 mg sublingual 0.4 mg sublingual Q5M PRN chest 12/21/19 04/17/23 Unknown Rx tablet pain #25 tabs sumatriptan succinate 50 mg tablet 50 mg PO Q2H PRN Migraine Headache 06/13/20 04/17/23 1 Month Ago History ~03/18/23 albuterol sulfate 2.5 mg/3 mL 2.5 mg inhalation Q6H PRN 03/06/21 04/17/23 04/17/23 History (0.083 %) solution for nebulization Shortness Of Breath albuterol sulfate 90 mcg/actuation 2 puff inhalation Q6H PRN 03/06/21 04/17/23 04/17/23 History aerosol inhaler (ProAir HFA) Shortness Of Breath budesonide-formoterol HFA 160 2 puff inhalation Q12H PRN unknown 03/06/21 04/17/23 04/17/23 History mcg-4.5 mcg/actuation aerosol inhaler (Symbicort) levothyroxine 100 mcg tablet 100 mcg PO QAM 11/24/22 04/17/23 04/17/23 History (Unithroid) loratadine 10 mg tablet 10 mg PO QAM 11/24/22 04/17/23 04/17/23 History pioglitazone 45 mg tablet 45 mg PO QAM 11/24/22 04/17/23 04/17/23 History tramadol 50 mg tablet 25 mg (1/2 x 50 mg) PO Q12H PRN 11/24/22 04/18/23 Unknown Rx pain #14 tabs trazodone 100 mg tablet 100 mg PO BEDTIME 11/24/22 04/18/23 04/16/23 History CPAP (Standard Cpap) 12/05/22 04/17/23 04/17/23 History citalopram 10 mg tablet 10 mg PO DAILY 01/17/23 04/17/23 04/17/23 History rosuvastatin 10 mg tablet 10 mg PO DAILY 01/17/23 04/18/23 04/16/23 History liraglutide 0.6 mg/0.1 mL (18 mg/3 1.2 mg SUBCUT DIRECTED 04/17/23 04/17/23 04/15/23 History mL) subcutaneous pen injector (Victoza 3-[place]) Allergies Allergy/AdvReac Type Severity Reaction Status Date / Time No Known Allergies Allergy Verified 03/07/23 15:15 Current Medications Generic Name Dose Route Start Last Admin Trade Name Freq PRN Reason Stop Dose Admin Sodium Chloride 1,000 mls @ 30 mls/hr 04/18/23 09:45 04/18/23 09:46 Sodium Chloride 0.9% IV 04/19/23 09:44 30 mls/hr .Q24H DAMON Administration PFSH Anesthesia Medical History Diabetes Hyperlipidemia Hypothyroidism RBBB Surgical History S/P cholecystectomy Family History Other CAD (coronary artery disease) Cancer Diabetes Hypertension Social History Smoking and tobacco/nicotine status: never used tobacco/nicotine Alcohol intake: never Substance/Drug Use: never Data Anesthesia Cardiac Studies: Echocardiogram 02/19/22 Cardiac Event Monitor 11/30/20
[2023-04-18 12:05] VITALS: BP 121/72; PULSE 94; RESP 14; TEMP 36.3; O2SAT 98
[2023-04-18 12:15] VITALS: BP 118/63; PULSE 88; RESP 14; O2SAT 99
[2023-04-18 12:25] VITALS: BP 138/76; PULSE 89; RESP 16; O2SAT 99
--- NOTE | 2023-04-18 12:40 | ANE.PACU2 ---
Inpatient post-anesthesia follow up: Airway intact: Yes Vital signs: Temperature 97.4 F Pulse Rate 89 Respiratory Rate 16 Blood Pressure 138/76 Pulse Oximetry 99 Oxygen Delivery Me thod Room Air Oxygen Flow Rate Fraction of Inspir ed Oxygen Hydration adequate: Yes Nausea and vomiting: No Pain level: 1 Mental status: Baseline
== END 2023-04-18 12:40 | disposition home or self-care (01) ==
PROVIDERS: PCP Physician Assistant; Visit Provider Surgery
PROC: 0DJ08ZZ Inspection of Upper Intestinal Tract, Via Natural or Artificial Opening Endoscopic (ICD-10-PCS; CPT 43235; principal; 2023-04-18 10:40)
PROC: 0DJD8ZZ Inspection of Lower Intestinal Tract, Via Natural or Artificial Opening Endoscopic (ICD-10-PCS; CPT 45378; 2023-04-18 10:40)
DX: D50.9 Iron deficiency anemia, unspecified (principal); Z79.82 Long term (current) use of aspirin; E03.9 Hypothyroidism, unspecified; E11.9 Type 2 diabetes mellitus without complications; E78.5 Hyperlipidemia, unspecified; K57.30 Diverticulosis of large intestine without perforation or abscess without bleeding; K62.1 Rectal polyp; K29.50 Unspecified chronic gastritis without bleeding; K21.00 Gastro-esophageal reflux disease with esophagitis, without bleeding; K25.7 Chronic gastric ulcer without hemorrhage or perforation; K29.80 Duodenitis without bleeding; G47.30 Sleep apnea, unspecified
CPT/HCPCS: 36416; 43239; 45380; 82962; 88305; 88342; J2704; J7030

== ENCOUNTER → 2023-05-07 09:56 | Outpatient (BNVA) | payer MEDICARE, OTHER, SELFPAY | PROVIDERS: PCP Physician Assistant; Visit Provider Surgery | DX: Z09 Encounter for follow-up examination after completed treatment for conditions other than malignant neoplasm (principal) | CPT/HCPCS: 99214 ==

== ENCOUNTER 2023-06-11 13:17 | Oncology outpatient (recurring) (ONCR) | payer MEDICARE, OTHER, SELFPAY ==
[2023-06-11 13:31] LABS: Basophils % 0.3 %; Eosinophils # 0.1 10^3/uL (0.0-0.8); Eosinophils % 2.2 %; Hematocrit 33.5 % (36-47); Lymphocytes # 1.7 10^3/uL (0.8-4.8); Lymphocytes % 26.6 %; Mean Corpuscular HGB Conc 33.1 g/dL (30-55); Mean Corpuscular Hemoglobin 30.9 pg (27-33); Mean Corpuscular Volume 93.3 fl (85-98); Mean Platelet Volume 9.6 fL (7.4-10.4); Monocytes # 0.4 10^3/uL (0.2-0.9); Monocytes % 5.9 %; Neutrophils # 4.04 10^3/uL (1.8-7.7); Neutrophils % 64.7 %; Nucleated Red Blood Cells % 0 %; Platelet Count 228 10^3/cmm (157-399); Red Blood Count 3.59 10^6/uL (3.85-5.65); White Blood Count 6.25 10^3/uL (3.29-11.43)
[2023-06-11 13:47] LABS: Alanine Aminotransferase 12 U/L (0-33); Albumin Level 3.8 g/dL (3.5-5.2); Alkaline Phosphatase 73 U/L (35-105); Anion Gap 14.1 (5-19); Aspartate Amino Transferase 22 U/L (0-32); Blood Urea Nitrogen 15 mg/dL (8-23); Calcium 8.7 mg/dL (8.5-10.5); Carbon Dioxide 26 mmol/L (22-29); Chloride 102 mmol/L (98-107); Globulin 2.7 g/dL (1.3-4.6); Glomerular Filtration Rate 49.4 mL/min (90-130); Glucose 169 mg/dL (65-115); Osmolality Calculated 291 mOsm/kg (285-295); Potassium 4.1 mmol/L (3.5-5.1); Sodium 138 mmol/L (136-145); Total Bilirubin 0.4 mg/dL (0.15-1.2); Total Protein 6.5 g/dL (6.6-8.7)
[2023-06-11 14:38] LABS: Ferritin 52 ng/mL (15-150); Iron 80 ug/dL (37-145); Percent Saturation 25.5 % (20-50); Total Iron Binding Capacity 313 mcg/dl; Unsaturated Iron Binding 233 ug/dL (112-347)
== END 2023-06-20 23:59 | disposition home or self-care (01) ==
PROVIDERS: Nurse Practitioner Family; PCP Physician Assistant; Visit Provider Internal Medicine Medical Oncology
DX: D50.9 Iron deficiency anemia, unspecified (principal); Z79.899 Other long term (current) drug therapy; N18.9 Chronic kidney disease, unspecified; E11.22 Type 2 diabetes mellitus with diabetic chronic kidney disease; Z79.85 Long-term (current) use of injectable non-insulin antidiabetic drugs; K29.70 Gastritis, unspecified, without bleeding; Z53.9 Procedure and treatment not carried out, unspecified reason
CPT/HCPCS: 36415; 80053; 82728; 83540; 83550; 85025; 99214

== ENCOUNTER → 2023-07-24 12:43 | Outpatient (BNVA) | payer MEDICARE, OTHER, SELFPAY | PROVIDERS: PCP Physician Assistant; Visit Provider Surgery | DX: Z09 Encounter for follow-up examination after completed treatment for conditions other than malignant neoplasm (principal) | CPT/HCPCS: 99213 ==

== ENCOUNTER 2023-09-03 06:35 | Day surgery (SDC) | payer MEDICARE, OTHER, SELFPAY ==
--- NOTE | 2023-09-03 06:13 | W.PM.OPSFHP ---
Same Day Surgery H&P Indication for Procedure/HPI DATE OF PROCEDURE: September 03, 2023 CHIEF COMPLAINT/INDICATIONFOR SURGICAL PROCEDURE: gerd PREOP DIAGNOSIS: gerd and history of ulcers PLANNED PROCEDURE: Operation Date: 09/03/23 07:40 Proposed Procedures p EGD(Not Applicable) - Kal Ye MD Medications/Allergies* Home Medications Medication Instructions Recorded Confirmed Type aspirin 81 mg tablet,delayed 81 mg PO QAM 06/22/19 08/29/23 History release (Adult Low Dose Aspirin) metoprolol tartrate 25 mg tablet 25 mg PO BID 06/22/19 08/29/23 History sumatriptan succinate 50 mg tablet 50 mg PO Q2H PRN Migraine Headache 06/13/20 08/29/23 History albuterol sulfate 2.5 mg/3 mL 2.5 mg inhalation Q6H PRN 03/06/21 08/29/23 History (0.083 %) solution for nebulization Shortness Of Breath albuterol sulfate 90 mcg/actuation 2 puff inhalation Q6H PRN 03/06/21 08/29/23 History aerosol inhaler (ProAir HFA) Shortness Of Breath budesonide-formoterol HFA 160 2 puff inhalation Q12H PRN unknown 03/06/21 08/29/23 History mcg-4.5 mcg/actuation aerosol inhaler (Symbicort) levothyroxine 100 mcg tablet 100 mcg PO QAM 11/24/22 08/29/23 History (Unithroid) loratadine 10 mg tablet 10 mg PO QAM 11/24/22 08/29/23 History pioglitazone 45 mg tablet 45 mg PO QAM 11/24/22 08/29/23 History trazodone 100 mg tablet 100 mg PO BEDTIME 11/24/22 08/29/23 History CPAP (Standard Cpap) 12/05/22 08/29/23 History citalopram 10 mg tablet 10 mg PO DAILY 01/17/23 08/29/23 History rosuvastatin 10 mg tablet 10 mg PO DAILY 01/17/23 08/29/23 History sitagliptin phosphate 100 mg 100 mg PO DAILY 08/29/23 08/29/23 History tablet (Januvia) Allergies/Adverse Reactions Allergy/AdvReac Type Severity Reaction Status Date / Time No Known Allergies Allergy Verified 06/11/23 14:47 Pertinent History/Comorbid Conditions* Medical History (Updated 08/27/23 @ 08:17 by NANCY Clements) Hypertension RBBB Hypothyroidism Diabetes Hyperlipidemia Surgical History (Updated 06/22/19 @ 11:24 by Elidia Elliott MD) S/P cholecystectomy Family History (Updated 06/22/19 @ 11:11 by Corrina Rubio RN) Diabetes CAD (coronary artery disease) Cancer Hypertension Social History Smoking and tobacco/nicotine status: never used tobacco/nicotine Alcohol intake: never Substance/Drug Use: never Pertinent Exam Findings alert, oriented x 3 and clear to auscultation bilaterally Recommendations Surgery/Procedure today Coding Level of Care Code Acute Code for Chg Fwd
[2023-09-03 06:51] VITALS: BMI 42.3
[2023-09-03 06:52] VITALS: BP 157/77; PULSE 75; RESP 18; TEMP 36.6; O2SAT 95
[2023-09-03 06:57] LABS: Glucose Point of Care 191 mg/dL (70-110)
[2023-09-03] MEDS: sodium chloride 0.9% 1,000 ML 30 ML IV (06:58)
--- NOTE | 2023-09-03 06:58 | ANES.PREANE2 ---
Pre-Anesthetic Assessment Height/Weight: Height 1.52 m Weight 98.43 kg Temp Pulse Resp BP Pulse Ox 97.8 F 75 18 157/77 95 09/03/23 06:52 09/03/23 06:52 09/03/23 06:52 09/03/23 06:52 09/03/23 06:52 Preop Diagnosis: gerd and history of ulcers Operation Date: 09/03/23 07:40 Proposed Procedures p EGD(Not Applicable) - Kal Ye MD Last intake: Intake Last Liquid Date 09/02/23 Last Liquid Time 23:30 Last Solid Date 09/02/23 Last Solid Time 18:00 Social No tobacco Exam alert, oriented x 3, clear to auscultation bilaterally and regular rate & rhythm Airway Submandibular: within normal limits Cervical ROM: within normal limits Mallampati: Class I Pulmonary Sleep Apnea uses CPAP CV/HEM Hypertension None reported Metabolic Diabetes Mellitus Anesthetic Plan ASA status: 3 Anesthesia: MAC Risk of > 500 ml blood loss (7ml/kg in children): No Medications/Allergies Home Medications Medication Instructions Recorded Confirmed Last Taken Type aspirin 81 mg tablet,delayed 81 mg PO QAM 06/22/19 08/29/23 09/02/23 History release (Adult Low Dose Aspirin) metoprolol tartrate 25 mg tablet 25 mg PO BID 06/22/19 08/29/23 09/02/23 History nitroglycerin 0.4 mg sublingual 0.4 mg sublingual Q5M PRN chest 12/21/19 09/03/23 Unknown Rx tablet pain #25 tabs sumatriptan succinate 50 mg tablet 50 mg PO Q2H PRN Migraine Headache 06/13/20 09/03/23 09/02/23 History albuterol sulfate 2.5 mg/3 mL 2.5 mg inhalation Q6H PRN 03/06/21 09/03/23 04/17/23 History (0.083 %) solution for nebulization Shortness Of Breath albuterol sulfate 90 mcg/actuation 2 puff inhalation Q6H PRN 03/06/21 09/03/23 04/17/23 History aerosol inhaler (ProAir HFA) Shortness Of Breath budesonide-formoterol HFA 160 2 puff inhalation Q12H PRN unknown 03/06/21 09/03/23 04/17/23 History mcg-4.5 mcg/actuation aerosol inhaler (Symbicort) levothyroxine 100 mcg tablet 100 mcg PO QAM 11/24/22 08/29/23 09/02/23 History (Unithroid) loratadine 10 mg tablet 10 mg PO QAM 11/24/22 08/29/23 09/02/23 History pioglitazone 45 mg tablet 45 mg PO QAM 11/24/22 08/29/23 09/02/23 History tramadol 50 mg tablet 25 mg (1/2 x 50 mg) PO Q12H PRN 11/24/22 09/03/23 09/02/23 Rx pain #14 tabs trazodone 100 mg tablet 100 mg PO BEDTIME 11/24/22 08/29/23 09/02/23 History CPAP (Standard Cpap) 12/05/22 08/29/23 04/17/23 History citalopram 10 mg tablet 10 mg PO DAILY 01/17/23 08/29/23 09/02/23 History rosuvastatin 10 mg tablet 10 mg PO DAILY 01/17/23 08/29/23 09/02/23 History sitagliptin phosphate 100 mg 100 mg PO DAILY 08/29/23 08/29/23 09/02/23 History tablet (Januvia) Allergies Allergy/AdvReac Type Severity Reaction Status Date / Time No Known Allergies Allergy Verified 06/11/23 14:47 Current Medications Generic Name Dose Route Start Last Admin Trade Name Freq PRN Reason Stop Dose Admin Sodium Chloride 1,000 mls @ 30 mls/hr 09/03/23 06:45 09/03/23 06:58 Sodium Chloride 0.9% IV 30 mls/hr .Q24H DAMON Administration PFSH Anesthesia Medical History (Updated 08/27/23 @ 08:17 by NANCY Clements) Hypertension RBBB Hypothyroidism Diabetes Hyperlipidemia Surgical History S/P cholecystectomy Family History Other CAD (coronary artery disease) Cancer Diabetes Hypertension Social History Smoking and tobacco/nicotine status: never used tobacco/nicotine Alcohol intake: never Substance/Drug Use: never Data Anesthesia Cardiac Studies: Echocardiogram 02/19/22 Cardiac Event Monitor 11/30/20
[2023-09-03 07:45] VITALS: BP 139/68; PULSE 68; RESP 18; TEMP 36.2; O2SAT 95
[2023-09-03 08:06] VITALS: BP 122/65; PULSE 67; RESP 16; O2SAT 96
--- NOTE | 2023-09-03 13:36 | P.ANESPOST_ITS ---
Inpatient post-anesthesia follow up: Vital signs: Temperature 97.1 F Pulse Rate 67 Respiratory Rate 16 Blood Pressure 122/65 Pulse Oximetry 96 Oxygen Delivery Me thod Room Air Oxygen Flow Rate Fraction of Inspir ed Oxygen Hydration adequate: Yes Nausea and vomiting: No Pain level: con trolled Mental status: Baseline Additional Comments: no apparent anesthetic complications noted
== END 2023-09-03 08:20 | disposition home or self-care (01) ==
PROVIDERS: PCP Physician Assistant; Visit Provider Surgery
PROC: 0DJ08ZZ Inspection of Upper Intestinal Tract, Via Natural or Artificial Opening Endoscopic (ICD-10-PCS; CPT 43235; principal; 2023-09-03 07:40)
DX: K29.30 Chronic superficial gastritis without bleeding (principal); K21.9 Gastro-esophageal reflux disease without esophagitis; I10 Essential (primary) hypertension; E11.9 Type 2 diabetes mellitus without complications; E78.5 Hyperlipidemia, unspecified; E03.9 Hypothyroidism, unspecified; Z79.899 Other long term (current) drug therapy; Z79.82 Long term (current) use of aspirin
CPT/HCPCS: 36416; 43239; 82962; 88305; 88342; J2704; J7030

== ENCOUNTER → 2023-09-25 12:50 | Outpatient (BNVA) | payer MEDICARE, OTHER, SELFPAY | PROVIDERS: PCP Physician Assistant; Visit Provider Surgery | DX: Z09 Encounter for follow-up examination after completed treatment for conditions other than malignant neoplasm (principal) | CPT/HCPCS: 99213 ==

== ENCOUNTER 2024-01-15 12:31 | Oncology outpatient (recurring) (ONCR) | payer MEDICARE, OTHER, SELFPAY ==
[2024-01-15 13:17] LABS: Basophils % 0.3 %; Eosinophils # 0.1 10^3/uL (0.0-0.8); Eosinophils % 1.7 %; Hematocrit 33.5 % (36-47); Lymphocytes # 1.7 10^3/uL (0.8-4.8); Lymphocytes % 27.9 %; Mean Corpuscular HGB Conc 33.4 g/dL (30-55); Mean Corpuscular Hemoglobin 31.3 pg (27-33); Mean Corpuscular Volume 93.6 fl (85-98); Monocytes # 0.3 10^3/uL (0.2-0.9); Neutrophils % 64.8 %; Nucleated Red Blood Cells % 0 %; Platelet Count 216 10^3/cmm (157-399); Red Blood Count 3.58 10^6/uL (3.85-5.65); Red Cell Distribution Width 13.4 % (12.1-15.1); White Blood Count 6.02 10^3/uL (3.29-11.43)
[2024-01-15 13:32] LABS: Alanine Aminotransferase 17 U/L (0-33); Albumin Level 3.6 g/dL (3.5-5.2); Alkaline Phosphatase 74 U/L (35-105); Anion Gap 13.4 (5-19); Aspartate Amino Transferase 23 U/L (0-32); Blood Urea Nitrogen 10 mg/dL (8-23); Calcium 8.4 mg/dL (8.5-10.5); Carbon Dioxide 28 mmol/L (22-29); Chloride 98 mmol/L (98-107); Ferritin 35 ng/mL (15-150); Globulin 2.6 g/dL (1.3-4.6); Glomerular Filtration Rate 40.6 mL/min (90-130); Glucose 177 mg/dL (65-115); Iron 60 ug/dL (37-145); Osmolality Calculated 285 mOsm/kg (285-295); Percent Saturation 19.4 % (20-50); Potassium 3.4 mmol/L (3.5-5.1); Sodium 136 mmol/L (136-145); Total Bilirubin 0.7 mg/dL (0.15-1.2); Total Iron Binding Capacity 308 mcg/dl; Total Protein 6.2 g/dL (6.6-8.7); Unsaturated Iron Binding 248 ug/dL (112-347)
== END 2024-01-20 23:59 | disposition home or self-care (01) ==
PROVIDERS: Nurse Practitioner Family; PCP Physician Assistant; Visit Provider Internal Medicine Medical Oncology
DX: D50.9 Iron deficiency anemia, unspecified (principal); Z79.899 Other long term (current) drug therapy
CPT/HCPCS: 36415; 80053; 82728; 83540; 83550; 85025; 99213

== ENCOUNTER 2024-04-16 11:45 | Oncology outpatient (recurring) (ONCR) | payer MEDICARE, OTHER, SELFPAY ==
[2024-04-16 13:32] LABS: Basophils % 0.5 %; Eosinophils # 0.1 10^3/uL (0.0-0.8); Eosinophils % 1.9 %; Hematocrit 34.8 % (36-47); Lymphocytes # 2.3 10^3/uL (0.8-4.8); Lymphocytes % 36.8 %; Mean Corpuscular HGB Conc 31.3 g/dL (30-55); Mean Corpuscular Hemoglobin 30.6 pg (27-33); Mean Corpuscular Volume 97.8 fl (85-98); Monocytes # 0.4 10^3/uL (0.2-0.9); Monocytes % 5.7 %; Neutrophils # 3.39 10^3/uL (1.8-7.7); Neutrophils % 54.8 %; Nucleated Red Blood Cells % 0 %; Platelet Count 209 10^3/cmm (157-399); Red Blood Count 3.56 10^6/uL (3.85-5.65); Red Cell Distribution Width 12.9 % (12.1-15.1); White Blood Count 6.19 10^3/uL (3.29-11.43)
[2024-04-16 13:49] LABS: Alanine Aminotransferase 9 U/L (0-33); Albumin Level 3.9 g/dL (3.5-5.2); Alkaline Phosphatase 69 U/L (35-105); Aspartate Amino Transferase 20 U/L (0-32); Blood Urea Nitrogen 13 mg/dL (8-23); Calcium 9.4 mg/dL (8.5-10.5); Carbon Dioxide 32 mmol/L (22-29); Chloride 101 mmol/L (98-107); Ferritin 49 ng/mL (15-150); Globulin 2.8 g/dL (1.3-4.6); Glomerular Filtration Rate 44.5 mL/min (90-130); Glucose 153 mg/dL (65-115); Iron 80 ug/dL (37-145); Osmolality Calculated 293 mOsm/kg (285-295); Percent Saturation 21.5 % (20-50); Sodium 140 mmol/L (136-145); Total Bilirubin 0.5 mg/dL (0.15-1.2); Total Iron Binding Capacity 371 mcg/dl; Total Protein 6.7 g/dL (6.6-8.7); Unsaturated Iron Binding 291 ug/dL (112-347)
[2024-04-16 13:50] LABS: Anion Gap 11.3 (5-19); Potassium 4.3 mmol/L (3.5-5.1)
== END 2024-04-21 23:59 | disposition home or self-care (01) ==
PROVIDERS: Nurse Practitioner Family; PCP Physician Assistant; Visit Provider Internal Medicine Medical Oncology
DX: D50.9 Iron deficiency anemia, unspecified; R82.998 Other abnormal findings in urine; Z53.9 Procedure and treatment not carried out, unspecified reason; E11.22 Type 2 diabetes mellitus with diabetic chronic kidney disease; N18.9 Chronic kidney disease, unspecified; D63.1 Anemia in chronic kidney disease; Z79.899 Other long term (current) drug therapy; Z79.85 Long-term (current) use of injectable non-insulin antidiabetic drugs
CPT/HCPCS: 36415; 80053; 82728; 83540; 83550; 85025; 99213

== ENCOUNTER 2024-06-25 08:42 | Oncology outpatient (recurring) (ONCR) | payer MEDICARE, OTHER, SELFPAY ==
[2024-06-25 09:35] LABS: Basophils % 0.4 %; Eosinophils # 0.1 10^3/uL (0.0-0.8); Eosinophils % 2.6 %; Hematocrit 36.1 % (36-47); Lymphocytes # 1.4 10^3/uL (0.8-4.8); Lymphocytes % 27.6 %; Mean Corpuscular HGB Conc 32.4 g/dL (30-55); Mean Corpuscular Hemoglobin 31.5 pg (27-33); Mean Corpuscular Volume 97.3 fl (85-98); Mean Platelet Volume 9.9 fL (7.4-10.4); Monocytes # 0.3 10^3/uL (0.2-0.9); Monocytes % 6.5 %; Neutrophils # 3.17 10^3/uL (1.8-7.7); Neutrophils % 62.5 %; Nucleated Red Blood Cells % 0 %; Platelet Count 200 10^3/cmm (157-399); Red Blood Count 3.71 10^6/uL (3.85-5.65); Red Cell Distribution Width 13.4 % (12.1-15.1); Reticulocyte % 2.2 % (0.5-2.0); White Blood Count 5.07 10^3/uL (3.29-11.43)
[2024-06-25 10:02] LABS: Alanine Aminotransferase 11 U/L (0-33); Albumin Level 4.1 g/dL (3.5-5.2); Alkaline Phosphatase 77 U/L (35-105); Anion Gap 12.4 (5-19); Aspartate Amino Transferase 21 U/L (0-32); Blood Urea Nitrogen 16 mg/dL (8-23); Calcium 9.1 mg/dL (8.5-10.5); Carbon Dioxide 32 mmol/L (22-29); Chloride 99 mmol/L (98-107); Ferritin 52 ng/mL (15-150); Globulin 2.6 g/dL (1.3-4.6); Glomerular Filtration Rate 44.4 mL/min (90-130); Glucose 133 mg/dL (65-115); Iron 96 ug/dL (37-145); Lactate Dehydrogenase 257 U/L (135-214); Osmolality Calculated 293 mOsm/kg (285-295); Percent Saturation 26.8 % (20-50); Potassium 3.4 mmol/L (3.5-5.1); Sodium 140 mmol/L (136-145); Total Bilirubin 0.6 mg/dL (0.15-1.2); Total Iron Binding Capacity 357 mcg/dl; Total Protein 6.7 g/dL (6.6-8.7); Unsaturated Iron Binding 261 ug/dL (112-347)
[2024-06-25 10:14] LABS: Vitamin B12 745 pg/mL (232-1245)
[2024-06-25 10:18] LABS: Folate Level 8.1 ng/mL (4.8-37.3)
== END 2024-07-20 23:59 | disposition home or self-care (01) ==
PROVIDERS: Internal Medicine; PCP Physician Assistant; Visit Provider Internal Medicine Medical Oncology
DX: D50.9 Iron deficiency anemia, unspecified (principal); R58 Hemorrhage, not elsewhere classified; N18.9 Chronic kidney disease, unspecified; E11.9 Type 2 diabetes mellitus without complications
CPT/HCPCS: 36415; 80053; 82607; 82728; 82746; 83010; 83540; 83550; 83615; 85025; 85045; 86140; 99213

== ENCOUNTER 2024-08-13 09:16 | Outpatient (CLI) | payer MEDICARE, OTHER, SELFPAY ==
--- NOTE | 2024-08-13 | MM_ITS ---
WS: [id number] BILATERAL SCREENING DIGITAL TOMOSYNTHESIS MAMMOGRAM WITH CAD HISTORY: ANNUAL SCREENING COMPARISON: 04/17/2023, 09/20/2021 Bilateral CC and MLO views with tomosynthesis and synthetic mammography submitted. Computer aided detection analyzed. Breast composition: The breasts are heterogeneously dense, which may obscure small masses. No suspicious masses, microcalcifications or architectural distortion. Benign calcifications scattered within each breast. No mass. MM/MM scr tomosynthesis [id number] IMPRESSION: BI-RADS: 2 - Benign FOLLOW UP: 1 Year Follow-up
== END 2024-08-13 09:17 | disposition home or self-care (01) ==
LOC: RAD 09:17
PROVIDERS: PCP Physician Assistant; Visit Provider Physician Assistant
DX: Z12.31 Encounter for screening mammogram for malignant neoplasm of breast (principal); Z01.419 Encounter for gynecological examination (general) (routine) without abnormal findings; R92.333 Mammographic heterogeneous density, bilateral breasts; R92.1 Mammographic calcification found on diagnostic imaging of breast
CPT/HCPCS: 77063; 77067; 87624

== ENCOUNTER → 2024-08-25 10:14 | Outpatient (BNVA) | payer MEDICARE, OTHER, SELFPAY | PROVIDERS: PCP Physician Assistant; Visit Provider Obstetrics & Gynecology | DX: N93.9 Abnormal uterine and vaginal bleeding, unspecified (principal) | CPT/HCPCS: 76830 ==

== ENCOUNTER 2024-10-29 12:05 | Oncology outpatient (recurring) (ONCR) | payer MEDICARE, OTHER, SELFPAY ==
[2024-10-29 12:43] LABS: Hematocrit 33.5 % (36-47); Hemoglobin 10.90 g/dL (11.27-16.99); Mean Corpuscular HGB Conc 32.5 g/dL (30-55); Mean Corpuscular Hemoglobin 31.4 pg (27-33); Mean Corpuscular Volume 96.5 fl (85-98); Nucleated Red Blood Cells % 0 %; Platelet Count 202 10^3/cmm (157-399); Red Blood Count 3.47 10^6/uL (3.85-5.65); White Blood Count 5.87 10^3/uL (3.29-11.43)
[2024-10-29 13:09] LABS: Alanine Aminotransferase 10 U/L (0-33); Albumin Level 3.9 g/dL (3.5-5.2); Alkaline Phosphatase 69 U/L (35-105); Anion Gap 15.1 (5-19); Aspartate Amino Transferase 20 U/L (0-32); Blood Urea Nitrogen 21 mg/dL (8-23); Calcium 8.8 mg/dL (8.5-10.5); Carbon Dioxide 25 mmol/L (22-29); Chloride 104 mmol/L (98-107); Creatinine Clr Calc Pharmacy 44.2898; Ferritin 32 ng/mL (15-150); Globulin 2.5 g/dL (1.3-4.6); Glucose 99 mg/dL (65-115); Iron 77 ug/dL (37-145); Osmolality Calculated 293 mOsm/kg (285-295); Potassium 4.1 mmol/L (3.5-5.1); Sodium 140 mmol/L (136-145); Total Iron Binding Capacity 393 mcg/dl; Total Protein 6.4 g/dL (6.6-8.7); Unsaturated Iron Binding 316 ug/dL (112-347)
== END 2024-11-19 23:59 | disposition home or self-care (01) ==
PROVIDERS: PCP Physician Assistant; Visit Provider Internal Medicine
DX: D50.9 Iron deficiency anemia, unspecified (principal); R58 Hemorrhage, not elsewhere classified; N18.9 Chronic kidney disease, unspecified; Z79.899 Other long term (current) drug therapy
CPT/HCPCS: 36415; 80053; 82668; 82728; 83010; 83540; 83550; 83615; 85025; 85045; 99213

== ENCOUNTER 2024-12-10 09:47 | Oncology outpatient (recurring) (ONCR) | payer MEDICARE, OTHER, SELFPAY ==
[2024-12-10 11:53] LABS: Hematocrit 34.8 % (36-47); Hemoglobin 11.00 g/dL (11.27-16.99); Mean Corpuscular HGB Conc 31.6 g/dL (30-55); Mean Corpuscular Hemoglobin 30.4 pg (27-33); Mean Corpuscular Volume 96.1 fl (85-98); Nucleated Red Blood Cells % 0 %; Platelet Count 210 10^3/cmm (157-399); Red Blood Count 3.62 10^6/uL (3.85-5.65); White Blood Count 5.11 10^3/uL (3.29-11.43)
[2024-12-10 12:10] LABS: Alanine Aminotransferase 11 U/L (0-33); Albumin Level 3.9 g/dL (3.5-5.2); Alkaline Phosphatase 73 U/L (35-105); Anion Gap 13.3 (5-19); Aspartate Amino Transferase 19 U/L (0-32); Blood Urea Nitrogen 20 mg/dL (8-23); Calcium 9.0 mg/dL (8.5-10.5); Carbon Dioxide 28 mmol/L (22-29); Chloride 104 mmol/L (98-107); Creatinine Clr Calc Pharmacy 44.4145; Ferritin 39 ng/mL (15-150); Globulin 2.8 g/dL (1.3-4.6); Glucose 127 mg/dL (65-115); Iron 82 ug/dL (37-145); Osmolality Calculated 296 mOsm/kg (285-295); Potassium 4.3 mmol/L (3.5-5.1); Sodium 141 mmol/L (136-145); Total Iron Binding Capacity 358 mcg/dl; Total Protein 6.7 g/dL (6.6-8.7); Unsaturated Iron Binding 276 ug/dL (112-347)
== END 2024-12-20 23:59 | disposition home or self-care (01) ==
PROVIDERS: Nurse Practitioner Family; PCP Physician Assistant; Visit Provider Internal Medicine
DX: D50.9 Iron deficiency anemia, unspecified (principal); R58 Hemorrhage, not elsewhere classified; N18.9 Chronic kidney disease, unspecified; Z79.899 Other long term (current) drug therapy
CPT/HCPCS: 36415; 80053; 82728; 83540; 83550; 83615; 85025; 99213

== ENCOUNTER → 2025-02-15 14:51 | Outpatient (BNVA) | payer MEDICARE, OTHER, SELFPAY | PROVIDERS: PCP Physician Assistant; Visit Provider Internal Medicine | DX: J45.50 Severe persistent asthma, uncomplicated (principal); G47.33 Obstructive sleep apnea (adult) (pediatric); Z99.89 Dependence on other enabling machines and devices; Z77.22 Contact with and (suspected) exposure to environmental tobacco smoke (acute) (chronic); J44.9 Chronic obstructive pulmonary disease, unspecified; T78.40XA Allergy, unspecified, initial encounter; X58.XXXA Exposure to other specified factors, initial encounter | CPT/HCPCS: 36415; 71046; 80053; 82728; 83540; 83550; 83615; 85025; 86003; 99204; Q3014 ==

== ENCOUNTER 2025-02-17 09:44 | Oncology outpatient (recurring) (ONCR) | payer MEDICARE, OTHER, SELFPAY ==
[2025-02-17 10:28] LABS: Hematocrit 36.2 % (36-47); Hemoglobin 11.70 g/dL (11.27-16.99); Mean Corpuscular HGB Conc 32.3 g/dL (30-55); Mean Corpuscular Hemoglobin 31.7 pg (27-33); Mean Corpuscular Volume 98.1 fl (85-98); Nucleated Red Blood Cells % 0 %; Platelet Count 215 10^3/cmm (157-399); Red Blood Count 3.69 10^6/uL (3.85-5.65); White Blood Count 6.63 10^3/uL (3.29-11.43)
== END 2025-02-19 23:59 | disposition home or self-care (01) ==
PROVIDERS: Nurse Practitioner Family; PCP Physician Assistant; Visit Provider Internal Medicine
DX: Z53.9 Procedure and treatment not carried out, unspecified reason; D50.9 Iron deficiency anemia, unspecified; R03.0 Elevated blood-pressure reading, without diagnosis of hypertension; R58 Hemorrhage, not elsewhere classified; N18.9 Chronic kidney disease, unspecified
CPT/HCPCS: 36415; 85025; 99213

== ENCOUNTER → 2025-03-08 09:33 | Outpatient (BNVA) | payer MEDICARE, OTHER, SELFPAY | PROVIDERS: PCP Physician Assistant; Visit Provider Dermatology | DX: L72.11 Pilar cyst (principal); L21.8 Other seborrheic dermatitis; D22.5 Melanocytic nevi of trunk; L82.1 Other seborrheic keratosis; L81.4 Other melanin hyperpigmentation; L57.8 Other skin changes due to chronic exposure to nonionizing radiation | CPT/HCPCS: 99204 ==

== ENCOUNTER → 2025-03-24 13:25 | Outpatient (BNVA) | payer MEDICARE, OTHER, SELFPAY | PROVIDERS: PCP Physician Assistant; Visit Provider Dermatology | DX: D48.5 Neoplasm of uncertain behavior of skin (principal); R20.8 Other disturbances of skin sensation; R23.8 Other skin changes; L53.8 Other specified erythematous conditions | CPT/HCPCS: 11422; 12031 ==